=== PATIENT | male | born 1985 | race Caucasian/White ===

== ENCOUNTER 2017-10-01 17:33 | Emergency (ER) | payer OTHER ==
[~2017-10-01] VITALS: Ht 193 cm; Wt 68.0 kg
[2017-10-01 18:25] LABS: BASOPHILS ABSOLUTE AUTO 0.09 K/mm3 (0.00-0.23); BASOPHILS PERCENT AUTO 1 % (0-2); EOSINOPHILS ABSOLUTE AUTO 0.03 K/mm3 (0.00-0.68); EOSINOPHILS PERCENT AUTO 0 % (0-6); Hematocrit 48.2 % (37.0-53.0); Hemoglobin 16.3 g/dL (13.5-17.5); IMMATURE GRAN ABSOLUTE AUTO 0.03 K/mm3 (0.00-0.10); IMMATURE GRAN PERCENT AUTO 0 % (0-1); LYMPHOCYTES ABSOLUTE AUTO 2.16 K/mm3 (0.84-5.20); LYMPHOCYTES PERCENT AUTO 27 % (21-46); MONOCYTES ABSOLUTE AUTO 0.44 K/mm3 (0.16-1.47); MONOCYTES PERCENT AUTO 6 % (4-13); Mean Corpuscular HGB 29.6 pg (26.0-34.0); Mean Corpuscular HGB Conc 33.8 g/dL (31.5-36.5); Mean Corpuscular Volume 88 fL (80-100); Mean Platelet Volume 9.8 fL (9.1-12.4); NEUTROPHILS ABSOLUTE AUTO 5.32 K/mm3 (1.96-9.15); NEUTROPHILS PERCENT AUTO 66 % (41-73); Platelet Count 299 K/mm3 (150-400); RDW Coefficient Variation 11.8 % (11.7-14.2); RDW Standard Deviation 38.1 fL (35.1-46.3); Red Blood Cell Count 5.51 M/mm3 (4.30-5.90); White Blood Cell Count 8.07 K/mm3 (4.00-11.30)
[2017-10-01 18:46] LABS: Alanine Aminotransfer (ALT/SGP 18 U/L (12-78); Albumin, Blood 4.2 g/dL (3.4-5.0); Albumin/Globulin Ratio 1.1 (0.8-1.8); Alk Phos 64 U/L (50-136); Anion Gap 7 mmol/L (6-16); Aspartate Aminotrans (AST/SGOT 18 U/L (12-37); Bilirubin, Total 0.4 mg/dL (0.1-1.0); Blood Urea Nitrogen 16 mg/dL (8-24); Bun/Creatinine Ratio 18.5 (12.0-20.0); CO2, Blood 29 mmol/L (21-32); Calcium, Blood 9.7 mg/dL (8.5-10.1); Chloride, Blood 103 mmol/L (98-108); Creatinine, Blood 0.87 mg/dL (0.60-1.20); Globulin, Blood 3.9 g/dL (2.2-4.0); Glomerular Filtration Rate >60 (60-); Glucose, Blood 92 mg/dL (70-99); Potassium, Blood 3.7 mmol/L (3.5-5.5); Sodium, Blood 139 mmol/L (136-145); Total Protein, Blood 8.1 g/dL (6.4-8.2); Troponin I <0.015 ng/mL (0.000-0.040)
== END 2017-10-01 20:16 | disposition home or self-care (01) ==
LOC: ER 17:33
PROVIDERS: Emergency Medicine
DX: R07.9 Chest pain, unspecified (principal); F17.210 Nicotine dependence, cigarettes, uncomplicated
CPT/HCPCS: 71046; 80053; 84484; 85025; 93005; 93010; 99283

== ENCOUNTER 2020-02-29 21:36 | Emergency (ER) | payer OTHER ==
[~2020-02-29] VITALS: Ht 193 cm; Wt 68.0 kg
[2020-02-29 22:09] LABS: BASOPHILS ABSOLUTE AUTO 0.07 K/mm3 (0.00-0.23); BASOPHILS PERCENT AUTO 1 % (0-2); EOSINOPHILS ABSOLUTE AUTO 0.14 K/mm3 (0.00-0.68); EOSINOPHILS PERCENT AUTO 2 % (0-6); Hematocrit 47.3 % (37.0-53.0); Hemoglobin 15.8 g/dL (13.5-17.5); IMMATURE GRAN ABSOLUTE AUTO 0.01 K/mm3 (0.00-0.10); IMMATURE GRAN PERCENT AUTO 0 % (0-1); LYMPHOCYTES ABSOLUTE AUTO 2.41 K/mm3 (0.84-5.20); LYMPHOCYTES PERCENT AUTO 41 % (21-46); MONOCYTES ABSOLUTE AUTO 0.49 K/mm3 (0.16-1.47); MONOCYTES PERCENT AUTO 8 % (4-13); Mean Corpuscular HGB Conc 33.4 g/dL (31.5-36.5); Mean Corpuscular Volume 90 fL (80-100); NEUTROPHILS ABSOLUTE AUTO 2.83 K/mm3 (1.96-9.15); NEUTROPHILS PERCENT AUTO 48 % (41-73); Platelet Count 288 K/mm3 (150-400); RDW Coefficient Variation 12.1 % (11.7-14.2); RDW Standard Deviation 39.5 fL (35.1-46.3); Red Blood Cell Count 5.26 M/mm3 (4.30-5.90); White Blood Cell Count 5.95 K/mm3 (4.00-11.30)
[2020-02-29 22:27] LABS: Alanine Aminotransfer (ALT/SGP 22 U/L (12-78); Albumin/Globulin Ratio 1.2 (0.8-1.8); Alk Phos 68 U/L (50-136); Anion Gap 4 mmol/L (6-16); Aspartate Aminotrans (AST/SGOT 17 U/L (12-37); Bilirubin, Total 0.7 mg/dL (0.1-1.0); Blood Urea Nitrogen 10 mg/dL (8-24); Bun/Creatinine Ratio 10.6 (12.0-20.0); CO2, Blood 28 mmol/L (21-32); Chloride, Blood 109 mmol/L (98-108); Creatinine, Blood 0.94 mg/dL (0.60-1.20); Globulin, Blood 3.2 g/dL (2.2-4.0); Glomerular Filtration Rate >60 (60-); Glucose, Blood 90 mg/dL (70-99); Potassium, Blood 3.8 mmol/L (3.5-5.5); Sodium, Blood 141 mmol/L (136-145); Total Protein, Blood 7.2 g/dL (6.4-8.2)
[2020-02-29] MEDS ORDERED: CEPH500 PO (23:32)
== END 2020-02-29 23:42 | disposition home or self-care (01) ==
LOC: ER 21:36
PROVIDERS: Student in an Organized Health Care Education/Training Program
DX: L03.113 Cellulitis of right upper limb (principal); F17.210 Nicotine dependence, cigarettes, uncomplicated
CPT/HCPCS: 36415; 80053; 85025; 99283; A9270-GY

== ENCOUNTER 2022-06-01 08:24 | Emergency (ER) | payer OTHER ==
[~2022-06-01] VITALS: Ht 195.6 cm; Wt 68.0 kg
[~2022-06-01 08:24] MED LIST: CEPH500 PO
[2022-06-01 09:13] LABS: BASOPHILS ABSOLUTE AUTO 0.06 K/mm3 (0.00-0.23); BASOPHILS PERCENT AUTO 1 % (0-2); EOSINOPHILS ABSOLUTE AUTO 0.02 K/mm3 (0.00-0.68); EOSINOPHILS PERCENT AUTO 0 % (0-6); Hematocrit 43.3 % (37.0-53.0); Hemoglobin 14.6 g/dL (13.5-17.5); IMMATURE GRAN ABSOLUTE AUTO 0.03 K/mm3 (0.00-0.10); IMMATURE GRAN PERCENT AUTO 0 % (0-1); LYMPHOCYTES ABSOLUTE AUTO 1.23 K/mm3 (0.84-5.20); LYMPHOCYTES PERCENT AUTO 12 % (21-46); MONOCYTES ABSOLUTE AUTO 0.82 K/mm3 (0.16-1.47); MONOCYTES PERCENT AUTO 8 % (4-13); Mean Corpuscular HGB 30.2 pg (26.0-34.0); Mean Corpuscular HGB Conc 33.7 g/dL (31.5-36.5); Mean Corpuscular Volume 90 fL (80-100); Mean Platelet Volume 9.8 fL (9.1-12.4); NEUTROPHILS PERCENT AUTO 78 % (41-73); NRBC ABSOLUTE 0.02 K/mm3 (0.00-0.02); NRBC Auto 0.2 /100 WBC (0.0-0.2); Platelet Count 286 K/mm3 (150-400); RDW Coefficient Variation 12.3 % (11.7-14.2); RDW Standard Deviation 40.6 fL (35.1-46.3); Red Blood Cell Count 4.84 M/mm3 (4.30-5.90); White Blood Cell Count 9.96 K/mm3 (4.00-11.30)
[2022-06-01 09:33] LABS: Albumin, Blood 3.4 g/dL (3.4-5.0); Bilirubin, Total 0.5 mg/dL (0.1-1.0); Bun/Creatinine Ratio 9.5 (12.0-20.0); Calcium, Blood 8.4 mg/dL (8.5-10.1); Creatinine, Blood 0.84 mg/dL (0.60-1.20); Globulin, Blood 3.3 g/dL (2.2-4.0); Potassium, Blood 4.3 mmol/L (3.5-5.5); Total Protein, Blood 6.7 g/dL (6.4-8.2)
[2022-06-01] MEDS ORDERED: AMOCLA875 PO (10:31)
== END 2022-06-01 11:44 | disposition home or self-care (01) ==
LOC: ER 08:24
PROVIDERS: Student in an Organized Health Care Education/Training Program
DX: K05.219 Aggressive periodontitis, localized, unspecified severity (principal); F17.210 Nicotine dependence, cigarettes, uncomplicated
CPT/HCPCS: 36415; 70491; 80053; 83605; 85025; 87040; 96365-59; 96367; 99284-25; J0696; J0713; J7030; Q9967

== ENCOUNTER 2023-03-18 11:43 | Emergency (ER) | payer SELFPAY ==
[~2023-03-18] VITALS: Ht 195.6 cm; Wt 74.8 kg
[~2023-03-18 11:43] MED LIST changes: +AMOCLA875 PO
[2023-03-18 11:50] VITALS: BP 127/87
[2023-03-18 12:16] LABS: BASOPHILS ABSOLUTE AUTO 0.06 K/mm3 (0.00-0.23); BASOPHILS PERCENT AUTO 0 % (0-2); EOSINOPHILS ABSOLUTE AUTO 0.02 K/mm3 (0.00-0.68); EOSINOPHILS PERCENT AUTO 0 % (0-6); Hematocrit 45.3 % (37.0-53.0); Hemoglobin 15.3 g/dL (13.5-17.5); IMMATURE GRAN ABSOLUTE AUTO 0.04 K/mm3 (0.00-0.10); IMMATURE GRAN PERCENT AUTO 0 % (0-1); LYMPHOCYTES PERCENT AUTO 7 % (21-46); MONOCYTES ABSOLUTE AUTO 0.67 K/mm3 (0.16-1.47); MONOCYTES PERCENT AUTO 5 % (4-13); Mean Corpuscular HGB 29.7 pg (26.0-34.0); Mean Corpuscular HGB Conc 33.8 g/dL (31.5-36.5); Mean Corpuscular Volume 88 fL (80-100); Mean Platelet Volume 9.8 fL (9.1-12.4); NEUTROPHILS ABSOLUTE AUTO 12.47 K/mm3 (1.96-9.15); NEUTROPHILS PERCENT AUTO 88 % (41-73); Platelet Count 334 K/mm3 (150-400); RDW Coefficient Variation 11.5 % (11.7-14.2); RDW Standard Deviation 36.7 fL (35.1-46.3); Red Blood Cell Count 5.15 M/mm3 (4.30-5.90); White Blood Cell Count 14.26 K/mm3 (4.00-11.30)
[2023-03-18 12:51] LABS: Albumin, Blood 4.1 g/dL (3.4-5.0); Albumin/Globulin Ratio 1.3 (0.8-1.8); Bilirubin, Total 0.3 mg/dL (0.1-1.0); Bun/Creatinine Ratio 22.2 (12.0-20.0); Creatinine, Blood 0.99 mg/dL (0.60-1.20); Globulin, Blood 3.1 g/dL (2.2-4.0); Potassium, Blood 4.1 mmol/L (3.5-5.5); Total Protein, Blood 7.2 g/dL (6.4-8.2)
[2023-03-18] MEDS ORDERED: ONDA4ODT MM (13:44)
== END 2023-03-18 13:55 | disposition home or self-care (01) ==
LOC: ER 11:43
PROVIDERS: Student in an Organized Health Care Education/Training Program
DX: R10.84 Generalized abdominal pain (principal); F17.210 Nicotine dependence, cigarettes, uncomplicated
CPT/HCPCS: 80053; 83690; 85025; 96374; 99283-25; J2405; J7030

== ENCOUNTER 2023-06-22 01:16 | Emergency (ER) | payer OTHER ==
[~2023-06-22] VITALS: Ht 182.9 cm; Wt 70.3 kg
[~2023-06-22 01:16] MED LIST changes: +ONDA4ODT MM
[2023-06-22 01:33] VITALS: BP 155/83
[2023-06-22] MEDS ORDERED: AMOCLA875 PO (02:47)
== END 2023-06-22 03:21 | disposition home or self-care (01) ==
LOC: ER 01:16
DX: K04.7 Periapical abscess without sinus (principal); F17.210 Nicotine dependence, cigarettes, uncomplicated
CPT/HCPCS: 99282; A9270; J1100

== ENCOUNTER 2024-09-09 13:21 | Emergency (ER) | payer OTHER ==
[~2024-09-09] VITALS: Ht 193 cm; Wt 75.8 kg
[2024-09-09 13:39] VITALS: BP 109/95
== END 2024-09-09 13:44 | disposition home or self-care (01) ==
LOC: ER 13:21
DX: J98.8 Other specified respiratory disorders (principal); B97.89 Other viral agents as the cause of diseases classified elsewhere; F17.210 Nicotine dependence, cigarettes, uncomplicated
CPT/HCPCS: 99282

== ENCOUNTER 2025-06-09 08:11 | Day surgery (SDC) | payer OTHER ==
[~2025-06-09] VITALS: Ht 195.6 cm; Wt 80.0 kg
[2025-06-09] MEDS ORDERED: CeFAZolin Sodium 2,000 MG VIAL ONE (08:16)
[2025-06-09] MEDS ORDERED: IBUP200 PO (08:44)
[2025-06-09] MEDS ORDERED: ACET500 PO (08:45)
[2025-06-09] MEDS ORDERED: Midazolam HCl 1MG / ML 2ML Vial ONE ×2 (09:41→10:13)
[2025-06-09] MEDS ORDERED: FentaNYL Citrate 50 MCG/ML 2 ML Injection ONE (09:41)
[2025-06-09] MEDS ORDERED: Dexamethasone Sod Phos 10 MG/ML 1ML VIAL ONE (09:43)
[2025-06-09] MEDS ORDERED: Rocuronium Bromide 10 MG/ML 5ML Injection IV ONE (09:43)
[2025-06-09] MEDS ORDERED: Ketorolac Tromethamine 30mg Vial ONE (09:43)
[2025-06-09] MEDS ORDERED: Ondansetron HCl 2 MG / ML 2ML Vial ONE (09:43)
[2025-06-09] MEDS ORDERED: Tranexamic Acid 100 ML IV ONE (09:50)
[2025-06-09] MEDS ORDERED: Bupivacaine 0.5% W/EPI 1:200000 SDV 30 ML Vial ONE (10:09)
[2025-06-09] MEDS ORDERED: HYDROmorphone HCl/Pf 1MG SYR ONE ×2 (11:07→11:08)
--- NOTE | 2025-06-09 12:11 | NUR ---
06/09/25 1211 Bárbara López REPORT RECEIVED FROM GIL AND RN. PT ASLEEP WITH LMA IN PLACE, LMA REMOVED AT 1206. PT AROUSABLE TO VOICE, CURRENTLY FOLLOWS COMMANDS AND ANSWERS QUESTIONS. PT TALKATIVE. VSS.
--- NOTE | 2025-06-09 12:35 | NUR ---
06/09/25 1235 EDY AVINA GIRLFRIEND PRADIP BACK WITH PT. PT CUFF ON LEFT ANKLE. BP SHOWS VERY HIGH CHANGED BP CUFF TO RIGHT FOREARM AND BP IS SHOWING 129/91
[2025-06-09 12:50] VITALS: BP 141/92
== END 2025-06-09 13:10 | disposition home or self-care (01) ==
LOC: ORSCSDS 08:11
PROVIDERS: Orthopaedic Surgery Sports Medicine
PROC: 01B60ZZ Excision of Radial Nerve, Open Approach (ICD-10-PCS; principal; 2025-06-09 09:45)
PROC: 0JBD0ZZ Excision of Right Upper Arm Subcutaneous Tissue and Fascia, Open Approach (ICD-10-PCS; principal; 2025-06-09 09:45)
DX: D17.39 Benign lipomatous neoplasm of skin and subcutaneous tissue of other sites (principal); D36.12 Benign neoplasm of peripheral nerves and autonomic nervous system, upper limb, including shoulder; F17.290 Nicotine dependence, other tobacco product, uncomplicated; Z79.899 Other long term (current) drug therapy
CPT/HCPCS: 88304; 88305; 88341; 88342; A9270; J0690; J1100; J1171; J1885; J2250; J2405; J2704; J3010; J7120

== ENCOUNTER → 2025-07-27 | Outpatient (CLI) | payer OTHER ==
[~2025-07-27] MED LIST changes: +ACET500 PO; +IBUP200 PO
[2025-07-27 12:05] LABS: Automated BF WBC Count 1.774 K/mm3 (0-999)
[2025-07-27 12:21] LABS: Automated BF RBC Count 4.974 M/mm3 (0-0)
[2025-07-27 12:32] LABS: Color, Body Fluid Red (None-Yellow); Eosinophils, Fluid 2.0 % (0.0-10.0); Lymphocytes, Fluid 67.0 % (0.0-18.0); Neutrophils, Fluid 31.0 % (0.0-25.0); Total Cell Count, Body Fluid 100
== END ==
LOC: LAB 11:32 → LAB SHORT 11:32
PROVIDERS: Orthopaedic Surgery Sports Medicine
DX: R22.32 Localized swelling, mass and lump, left upper limb (principal)
CPT/HCPCS: 87070; 87075; 87205; 89051